=== PATIENT | female | born 1960 | race Caucasian/White ===

== ENCOUNTER 2020-11-10 11:46 | Emergency (ER) | payer OTHER ==
[2020-11-10 11:59] VITALS: RESP 18
[2020-11-10] MEDS ORDERED: ASPIRIN 81 MG PO STA (13:28)
[2020-11-10] MEDS ORDERED: KETOROLAC 15 MG/ML 1 ML VIAL IVP STA (13:28)
[2020-11-10 13:29] LABS: Basophils # (A) 0.1 k/uL (0-0.2); Basophils % (A) 1 %; Eosinophils # (A) 0.4 k/uL (0-0.7); Eosinophils % (A) 6 %; HCT 46.2 % (34.0-46.0); HGB 15.4 gm/dL (11.4-16.0); Lymphocytes # (A) 2.7 k/uL (1.0-4.8); Lymphocytes % (A) 34 %; MCH 31.5 pg (25.0-35.0); MCHC 33.3 g/dL (31.0-37.0); MCV 94.7 fL (80.0-100.0); Mean Platelet Volume 8.3; Monocytes # (A) 0.5 k/uL (0-1.0); Monocytes % (A) 6 %; Neutrophils # (A) 4.1 k/uL (1.3-7.7); Neutrophils % (A) 52 %; Platelet Count 229 k/uL (150-450); RBC 4.88 m/uL (3.80-5.40); RDW 13.2 % (11.5-15.5); WBC 7.9 k/uL (3.8-10.6)
--- NOTE | 2020-11-10 13:33 | ED ---
General Adult HPI - General Chief complaint: Recheck/Abnormal Lab/Rx Stated complaint: Sent from dr office, abnormal EKG Time Seen by Provider: 11/10/20 13:00 Source: patient, RN/MD, RN notes reviewed Mode of arrival: ambulatory Limitations: no limitations - History of Present Illness Initial comments: 61-year-old female who presents from her doctor's office with complaints of left arm pain is been going on for the past approximately 2 weeks it does get worse with certain movements and positional changes. Apparently is some evidence of some EKG changes on office EKG no shortness breath fevers chills sweats or other symptoms at this time. Patient states the pain does feel sharp burning with some numbness going down to his fingers. - Related Data Previous Rx's Medication Instructions Recorded Ibuprofen 800 mg PO Q6HR PRN #20 tablet 11/10/20 Allergies Allergy/AdvReac Type Severity Reaction Status Date / Time codeine Allergy Rash/Hives Verified 11/10/20 11:55 Penicillins AdvReac Nausea & Verified 11/10/20 11:55 Vomiting pseudoephedrine AdvReac Nausea & Verified 11/10/20 11:55 [From [facility]] Vomiting Review of Systems ROS Statement: Those systems with pertinent positive or pertinent negative responses have been documented in the HPI. ROS Other: All systems not noted in ROS Statement are negative. Past Medical History Past Medical History: Asthma, Hypertension History of Any Multi-Drug Resistant Organisms: None Reported Past Surgical History: Appendectomy, Tubal Ligation Past Psychological History: No Psychological Hx Reported Smoking Status: Current some day smoker Past Alcohol Use History: Rare Past Drug Use History: None Reported General Exam - General Exam Comments Initial Comments: Is a well-developed well-nourished awake alert oriented 3 Limitations: no limitations General appearance: alert, in no apparent distress Head exam: Present: atraumatic, normocephalic, normal inspection Eye exam: Present: normal appearance, PERRL, EOMI. Absent: scleral icterus, conjunctival injection, periorbital swelling ENT exam: Present: normal exam, mucous membranes moist Neck exam: Present: normal inspection, tenderness, full ROM. Absent: meningismus, lymphadenopathy Respiratory exam: Present: normal lung sounds bilaterally. Absent: respiratory distress, wheezes, rales, rhonchi, stridor Cardiovascular Exam: Present: regular rate, normal rhythm, normal heart sounds. Absent: systolic murmur, diastolic murmur, rubs, gallop, clicks GI/Abdominal exam: Present: soft, normal bowel sounds. Absent: distended, tenderness, guarding, rebound, rigid Extremities exam: Present: normal inspection, full ROM, normal capillary refill. Absent: tenderness, pedal edema, joint swelling, calf tenderness Back exam: Present: normal inspection Neurological exam: Present: alert, oriented X3, CN II-XII intact Psychiatric exam: Present: normal affect, normal mood Skin exam: Present: warm, dry, intact, normal color. Absent: rash Course Vital Signs 11/10/20 11/10/20 11:55 14:23 Temperature 98.2 F 98.0 F Pulse Rate 79 73 Respiratory 18 18 Rate Blood Pressure 137/90 133/83 O2 Sat by Pulse 99 97 Oximetry EKG Findings - EKG Results: EKG: sinus rhythm (Sinus rhythm 73. Interval 142 QRS 74 QT/QTC 380/418 low- voltage QRS evidence of anterior infarct of undetermined age. This does correlate with the one seen in the office.) Medical Decision Making - Medical Decision Making I did discuss findings with the patient the current presentation appears to be noncardiac in origin the patient's EKG is not normal does demonstrate some evidence of previous anterior wall activity. She will be discharged she will be placed on NSAIDs she does not want any other type of the medication muscle relaxers. I did recommend hot compresses and stretching exercises. Also did recommend follow-up with cardiology. - Lab Data Result diagrams: 11/10/20 13:00 11/10/20 13:00 Lab Results 11/10/20 11/10/20 11/10/20 Range/Units 13:00 13:00 13:00 WBC 7.9 (3.8-10.6) k/uL RBC 4.88 (3.80-5.40) m/uL Hgb 15.4 (11.4-16.0) gm/dL Hct 46.2 H (34.0-46.0) % MCV 94.7 (80.0-100.0) fL MCH 31.5 (25.0-35.0) pg MCHC 33.3 (31.0-37.0) g/dL RDW 13.2 (11.5-15.5) % Plt Count 229 (150-450) k/uL MPV 8.3 Neutrophils % 52 % Lymphocytes % 34 % Monocytes % 6 % Eosinophils % 6 % Basophils % 1 % Neutrophils # 4.1 (1.3-7.7) k/uL Lymphocytes # 2.7 (1.0-4.8) k/uL Monocytes # 0.5 (0-1.0) k/uL Eosinophils # 0.4 (0-0.7) k/uL Basophils # 0.1 (0-0.2) k/uL PT 10.7 (9.0-12.0) sec INR 1.0 (<1.2) APTT 23.2 (22.0-30.0) sec Sodium 140 (137-145) mmol/L Potassium 4.0 (3.5-5.1) mmol/L Chloride 100 (98-107) mmol/L Carbon Dioxide 28 (22-30) mmol/L Anion Gap 12 mmol/L BUN 10 (7-17) mg/dL Creatinine 0.72 (0.52-1.04) mg/dL Est GFR (CKD-EPI)AfAm >90 (>60 ml/min/1.73 sqM) Est GFR (CKD-EPI)NonAf >90 (>60 ml/min/1.73 sqM) Glucose 109 H (74-99) mg/dL Calcium 10.0 (8.4-10.2) mg/dL Magnesium 2.2 (1.6-2.3) mg/dL Total Bilirubin 0.6 (0.2-1.3) mg/dL AST 26 (14-36) U/L ALT 24 (4-34) U/L Alkaline Phosphatase 90 (38-126) U/L Creatine Kinase 74 (30-135) U/L Troponin I (0.000-0.034) ng/mL NT-Pro-B Natriuret Pep pg/mL Total Protein 7.9 (6.3-8.2) g/dL Albumin 5.0 (3.5-5.0) g/dL Lipase 68 (23-300) U/L 11/10/20 11/10/20 Range/Units 13:00 13:00 WBC (3.8-10.6) k/uL RBC (3.80-5.40) m/uL Hgb (11.4-16.0) gm/dL Hct (34.0-46.0) % MCV (80.0-100.0) fL MCH (25.0-35.0) pg MCHC (31.0-37.0) g/dL RDW (11.5-15.5) % Plt Count (150-450) k/uL MPV Neutrophils % % Lymphocytes % % Monocytes % % Eosinophils % % Basophils % % Neutrophils # (1.3-7.7) k/uL Lymphocytes # (1.0-4.8) k/uL Monocytes # (0-1.0) k/uL Eosinophils # (0-0.7) k/uL Basophils # (0-0.2) k/uL PT (9.0-12.0) sec INR (<1.2) APTT (22.0-30.0) sec Sodium (137-145) mmol/L Potassium (3.5-5.1) mmol/L Chloride (98-107) mmol/L Carbon Dioxide (22-30) mmol/L Anion Gap mmol/L BUN (7-17) mg/dL Creatinine (0.52-1.04) mg/dL Est GFR (CKD-EPI)AfAm (>60 ml/min/1.73 sqM) Est GFR (CKD-EPI)NonAf (>60 ml/min/1.73 sqM) Glucose (74-99) mg/dL Calcium (8.4-10.2) mg/dL Magnesium (1.6-2.3) mg/dL Total Bilirubin (0.2-1.3) mg/dL AST (14-36) U/L ALT (4-34) U/L Alkaline Phosphatase (38-126) U/L Creatine Kinase (30-135) U/L Troponin I <0.012 (0.000-0.034) ng/mL NT-Pro-B Natriuret Pep 33 pg/mL Total Protein (6.3-8.2) g/dL Albumin (3.5-5.0) g/dL Lipase (23-300) U/L - Radiology Data Radiology results: report reviewed (I did review the imaging and report no acute findings.), image reviewed Disposition Clinical Impression: Musculoskeletal pain of left upper extremity, Strain of left trapezius muscle Disposition: HOME SELF-CARE Condition: Good Instructions (If sedation given, give patient instructions): Cervical Strain (ED), Muscle Strain (ED) Prescriptions: Ibuprofen 800 mg PO Q6HR PRN #20 tablet PRN Reason: Pain Is patient prescribed a controlled substance at d/c from ED?: No Referrals: Calli Drake MD [Primary Care Provider] - 1-2 days
[2020-11-10 13:40] LABS: Partial Thromboplastin Time 23.2 sec (22.0-30.0); Prothrombin Time 10.7 sec (9.0-12.0)
[2020-11-10 13:45] LABS: ALT 24 U/L (4-34); AST 26 U/L (14-36); African American GFR (CKD) >90 (>60 ml/min/1.73 sqM); Alkaline Phosphatase 90 U/L (38-126); Anion Gap 12 mmol/L; Blood Urea Nitrogen 10 mg/dL (7-17); Carbon Dioxide 28 mmol/L (22-30); Chloride 100 mmol/L (98-107); Creatine Kinase 74 U/L (30-135); Glucose 109 mg/dL (74-99); Lipase 68 U/L (23-300); Magnesium 2.2 mg/dL (1.6-2.3); Non-African American GFR(CKD) >90 (>60 ml/min/1.73 sqM); Sodium 140 mmol/L (137-145); Total Bilirubin 0.6 mg/dL (0.2-1.3); Total Protein 7.9 g/dL (6.3-8.2)
--- NOTE | 2020-11-10 14:00 | XR ---
EXAMINATION TYPE: XR chest 2V DATE OF EXAM: 11/10/2020 COMPARISON: NONE HISTORY: Chest pain. TECHNIQUE: Frontal and lateral views of the chest are obtained. FINDINGS: There is no focal air space opacity or pneumothorax seen bilaterally. Possible small to ti ny left pleural effusion on lateral view, though I favor lobulated diaphragm contour The cardiac silh ouette size is within normal limits. Overlying EKG leads. Atherosclerotic change aortic knob. The o sseous structures show slight scoliotic curvature. IMPRESSION: No acute cardiopulmonary process.
[2020-11-10 14:24] VITALS: BP 133/83; TEMP 98
[2020-11-10 14:32] VITALS: PULSE 72
== END 2020-11-10 14:38 | disposition home or self-care (01) ==
LOC: EC 11:46
DX: S46.812A Strain of other muscles, fascia and tendons at shoulder and upper arm level, left arm, initial encounter (principal); F17.200 Nicotine dependence, unspecified, uncomplicated; Z90.49 Acquired absence of other specified parts of digestive tract; Z98.51 Tubal ligation status; Z88.0 Allergy status to penicillin; Z88.5 Allergy status to narcotic agent; Z88.8 Allergy status to other drugs, medicaments and biological substances; X58.XXXA Exposure to other specified factors, initial encounter
CPT/HCPCS: 36415; 93005; 83880; 80053; 82550; 83690; 83735; 84484; 85025; 85610; 85730; 71046; 99284; 96374; J1885

== ENCOUNTER → 2020-12-09 | Outpatient (CLI) | payer OTHER ==
--- NOTE | 2020-12-10 11:17 | P.STRESS ---
- Stress Test Note Stress Test Results/Findings: Exam Performed: stress test Exam Date: 12/09/20 Reason for Exam: Chest Pain Height: 5 ft 3 in Weight: 58.967 kg Protocol: Ton Stage: 2 Duration of Exercise: 5:28 Resting Heart Rate: 79 Resting Blood Pressure: 121/78 Maximum Achieved Heart Rate: 133 Maximum Achieved Blood Pressure: 183/82 85% PMHR: 134 100% PMHR: 158 METS: 7.1 Technologist Comment: Stress Test Results/Findings: This is a 66-year-old female with history of hypertension, family history of ischemic cardiac disease and also smoking history. Being evaluated for symptoms of chest pain. Stress data: Baseline EKG showed sinus rhythm with normal [place] interval and QRS duration. Blood pressure at rest is 121/78, pulse rate of 79. Patient walked on the Ton protocol for 5 minutes and 28 seconds achieving a maximum heart rate of 133 with a blood pressure 177/81. EKGs taken during and after exercise did not reveal any changes of ischemia. Final impression #1. Negative stress test #2 patient did not experience any chest pain #3. No arrhythmias noted. #4. Patient exercise capacity is average.
--- NOTE | 2020-12-11 10:09 | EST ---
Stress Test Results/Findings: Exam Performed: stress test Exam Date: 12/09/20 Reason for Exam: Chest Pain Height: 5 ft 3 in Weight: 58.967 kg Protocol: Ton Stage: 2 Duration of Exercise: 5:28 Resting Heart Rate: 79 Resting Blood Pressure: 121/78 Maximum Achieved Heart Rate: 133 Maximum Achieved Blood Pressure: 183/82 85% PMHR: 134 100% PMHR: 158 METS: 7.1 Technologist Comment: Stress Test Results/Findings: This is a 66-year-old female with history of hypertension, family history of ischemic cardiac disease and also smoking history. Being evaluated for symptoms of chest pain. Stress data: Baseline EKG showed sinus rhythm with normal IN interval and QRS duration. Blood pressure at rest is 121/78, pulse rate of 79. Patient walked on the Ton protocol for 5 minutes and 28 seconds achieving a maximum heart rate of 133 with a blood pressure 177/81. EKGs taken during and after exercise did not reveal any changes of ischemia. Final impression #1. Negative stress test #2 patient did not experience any chest pain #3. No arrhythmias noted. #4. Patient exercise capacity is average. MTDD
== END | disposition home or self-care (01) ==
LOC: RADNMMAIN 10:37
PROVIDERS: ATTEND Family Medicine
DX: R94.31 Abnormal electrocardiogram [ECG] [EKG] (principal)
CPT/HCPCS: 93017

== ENCOUNTER → 2020-12-29 | Outpatient (CLI) | payer OTHER ==
--- NOTE | 2020-12-29 10:50 | CT ---
EXAMINATION TYPE: CT chest wo con DATE OF EXAM: 12/29/2020 COMPARISON: Chest x-ray 11/10/2020 HISTORY: smoker, reactive disease CT DLP: 168.1 mGycm. Automated Exposure Control for Dose Reduction was Utilized. TECHNIQUE: CT scan of the thorax is performed without IV contrast. FINDINGS: Lack of intravenous contrast could compromise sensitivity of the exam. Postop changes are n oted to the cervical spine. Degenerative disc disease noted in the visualized spine. Probable hemangi ayesha noted within the 11th vertebral body to the right of midline. LUNGS: The lungs are remarkable for groundglass opacity seen in the left upper lobe, axial image #8, there are scattered emphysematous changes, mild, there is no concerning parenchymal mass or nodule id entified. Some mild atelectatic change present along the medial aspect of the right middle lobe, ling antonio. There is no pleural effusion or pneumothorax seen. The tracheobronchial tree is patent. Business Area Director ior diaphragmatic hernia on the left contains fat. MEDIASTINUM: Lack of IV contrast is noted to limit evaluation for mediastinal and especially hilar ad enopathy. There are no definitive greater than 1 cm hilar or mediastinal lymph nodes. No cardiomega ly or pericardial effusion is seen. There is some mild coronary artery calcifications present. OTHER: Diverticular change noted within the colon. Fat-containing mass is partially visualized in the left kidney which may represent angiomyolipoma, the upper pole the left kidney there is a cystic foc us measuring 4.1 cm.. IMPRESSION: Indeterminate groundglass density in the left upper lobe, suggest follow-up to assess for stability or resolution. There is atelectatic lung or scarring suspected. Mild coronary artery disea se, emphysema. Noncontrast exam.
== END | disposition home or self-care (01) ==
LOC: RADCTMAIN 07:24
PROVIDERS: ATTEND Family Medicine
DX: J43.9 Emphysema, unspecified (principal); I25.10 Atherosclerotic heart disease of native coronary artery without angina pectoris
CPT/HCPCS: 71250

== ENCOUNTER → 2021-11-10 | Outpatient (CLI) | payer OTHER ==
--- NOTE | 2021-11-10 20:25 | CT ---
EXAMINATION TYPE: CT chest wo con DATE OF EXAM: 11/10/2021 INDICATION: COPD CT DLP: 223.9 mGy.cm Automated Exposure Control for Dose Reduction was Utilized. TECHNIQUE AND CONTRAST: Multiplanar CT scan of the chest is performed without IV contrast. COMPARISON: CT dated 12/29/2020 FINDINGS: Mild interval increase in the size of the previously seen groundglass opacity at the anterior aspect the left lung apex measuring 17 mm (image #31, series 6) compared to 13 mm previously. Stable chronic atelectasis and mild traction bronchiectasis along the medial aspect of the middle lobe. Grossly unr emarkable remainder of the lungs. Patent central airways. No pleural or pericardial effusion. No gross cardiomegaly. Scattered arterial atherosclerotic calcifi cations including coronary arterial calcifications. No progressive lymphadenopathy in the chest. Stab le left upper pole renal cyst without suspicious feature. Degenerative changes of the lower thoracic and upper lumbar spine. No gross aggressive bone lesion. IMPRESSION: Mild interval increase in the size of the left lung apex groundglass lesion since December 2020 CT scan as detailed above. Underlying slowly growing neoplastic process cannot be excluded. Recommend thoraci c surgery consultation.
== END | disposition home or self-care (01) ==
LOC: RADCTMAIN 13:28
PROVIDERS: ATTEND Internal Medicine Critical Care Medicine
DX: J44.9 Chronic obstructive pulmonary disease, unspecified (principal)
CPT/HCPCS: 71250

== ENCOUNTER → 2022-07-26 | Outpatient (CLI) | payer OTHER ==
--- NOTE | 2022-07-26 09:14 | CT ---
EXAMINATION TYPE: CT chest wo con DATE OF EXAM: 07/26/2022 COMPARISON: 11/10/2021 HISTORY: Lung nodule CT DLP: 214.20 mGycm. Automated Exposure Control for Dose Reduction was Utilized. TECHNIQUE: CT scan of the thorax is performed without IV contrast. FINDINGS: LUNGS: There is a stable groundglass nodularity in the left lung apex measuring 16 mm essentially unc hanged no pneumothorax or pleural effusion. No focal pneumonia or no pleural calcification. Subsegmen sophia consolidation anterior segment bilateral lower lobe most likely atelectasis. MEDIASTINUM: Lack of IV contrast is noted to limit evaluation for mediastinal and especially hilar ad enopathy. There are no definitive greater than 1 cm hilar or mediastinal lymph nodes. No cardiomega ly or pericardial effusion is seen. Aorta normal caliber with mild atherosclerotic changes. Coronary artery calcifications seen OTHER: Simple appearing left renal cysts. Hypertrophic degenerative changes spine. Findings compatibl e fat-containing diaphragmatic hernia on the left stable from prior exam. Small hiatal hernia.. IMPRESSION: 1. Stable vague groundglass nodularity left apex unchanged prior exam measuring 16 mm.
== END | disposition home or self-care (01) ==
LOC: RADCTMAIN 08:17
PROVIDERS: ATTEND Internal Medicine Critical Care Medicine
DX: R91.8 Other nonspecific abnormal finding of lung field (principal)
CPT/HCPCS: 71250

== ENCOUNTER → 2023-08-14 | Outpatient (CLI) | payer MEDICARE, OTHER ==
--- NOTE | 2023-08-14 11:25 | CTL ---
EXAMINATION TYPE: CT Low Dose Lung DATE OF EXAM ORDERED: 08/14/2023 HISTORY: Long-term tobacco use. Lung cancer screening CT DLP: 82.[address] CTDI: 2.2 mGy Automated exposure control for dose reduction was used. SCREENING VISIT: Baseline COMPARISON: Prior chest CTs back to December 29, 2020 TECHNIQUE: Low dose computed tomography scan was performed through the chest at 1 mm thick sections a nd reconstructed images in multiple planes at 1 mm and [address] DIAGNOSTIC QUALITY: Satisfactory FINDINGS: LUNG NODULES: None. No greater than 3 mm noncalcified solid pulmonary nodules. There is persistent 2.3 x 1.8 cm nodular g roundglass opacity anterior left upper lung axial image 42 which has been present but is larger versu s older CTs. LUNGS: COPD: Severity: None Fibrosis: Severity: Focal scarring medial anterior right mid to lower lung remains present. Lymph nodes: No greater than 1 cm Other findings: None RIGHT PLEURAL SPACE: Effusion: None Calcification: None Thickening: None Pneumothorax: None LEFT PLEURAL SPACE: Effusion: None Calcification: None Thickening: None Pneumothorax: None HEART: Heart Size: Normal Coronary Calcification: None Pericardial Effusion: None OTHER FINDINGS: Upper abdomen: None Bony thorax: Slight scoliotic curvature. Supraclavicular region: None Other: None IMPRESSION: Persistent groundglass nodular opacity in the anterior left upper lung measuring 2.3 x 1. 8 cm prior study is likely slow-growing versus prior CT. CT LUNG RAD AND CT CHEST RECOMMENDATION: Lung-Rad 2 Benign Appearance or Behavior: Continue annual sc reening with LDCT in 12 months. S Modifier (other clinically significant findings): None
== END | disposition home or self-care (01) ==
LOC: RADCTMAIN 08:49
PROVIDERS: ATTEND Internal Medicine Critical Care Medicine
DX: Z12.2 Encounter for screening for malignant neoplasm of respiratory organs (principal); R91.8 Other nonspecific abnormal finding of lung field; F17.210 Nicotine dependence, cigarettes, uncomplicated
CPT/HCPCS: 71271